=== PATIENT | female | born 1955 | race Caucasian/White ===

== ENCOUNTER 2024-01-27 13:09 | Emergency (ER) | payer MEDICARE, OTHER ==
[~2024-01-27] VITALS: Ht 172.7 cm; Wt 72.6 kg
[2024-01-27] MEDS ORDERED: NYSTRIT (13:38)
[2024-01-27] MEDS ORDERED: QUET25 PO (13:38)
[2024-01-27] MEDS ORDERED: DULCOLAX400 MG/5 M (13:39)
[2024-01-27] MEDS ORDERED: LOPE2C PO (13:39)
[2024-01-27] MEDS ORDERED: BISA10S PR (13:39)
[2024-01-27] MEDS ORDERED: Acetaminophen325 M1 PO (13:40)
[2024-01-27] MEDS ORDERED: NS 1,000 ML IV ONE (14:15)
[2024-01-27 15:14] LABS: BASOPHILS ABSOLUTE AUTO 0.04 K/mm3 (0.00-0.23); BASOPHILS PERCENT AUTO 0 % (0-2); EOSINOPHILS ABSOLUTE AUTO 0.06 K/mm3 (0.00-0.68); EOSINOPHILS PERCENT AUTO 1 % (0-6); Hematocrit 45.8 % (33.0-51.0); Hemoglobin 15.2 g/dL (11.5-16.0); IMMATURE GRAN ABSOLUTE AUTO 0.04 K/mm3 (0.00-0.10); IMMATURE GRAN PERCENT AUTO 0 % (0-1); LYMPHOCYTES ABSOLUTE AUTO 1.11 K/mm3 (0.84-5.20); LYMPHOCYTES PERCENT AUTO 11 % (21-46); MONOCYTES ABSOLUTE AUTO 0.52 K/mm3 (0.16-1.47); MONOCYTES PERCENT AUTO 5 % (4-13); Mean Corpuscular HGB 29.8 pg (26.0-34.0); Mean Corpuscular HGB Conc 33.2 g/dL (31.5-36.5); Mean Corpuscular Volume 90 fL (80-100); Mean Platelet Volume 11.2 fL (9.1-12.4); NEUTROPHILS ABSOLUTE AUTO 8.54 K/mm3 (1.96-9.15); NEUTROPHILS PERCENT AUTO 83 % (41-73); Platelet Count 243 K/mm3 (150-400); RDW Coefficient Variation 13.1 % (11.7-14.2); White Blood Cell Count 10.31 K/mm3 (4.00-11.30)
[2024-01-27 15:21] LABS: Source, Urine Straight Cath
[2024-01-27 15:30] LABS: Albumin, Blood 3.8 g/dL (3.4-5.0); Bilirubin, Total 0.7 mg/dL (0.1-1.0); Bun/Creatinine Ratio 14.2 (12.0-20.0); Calcium, Blood 9.2 mg/dL (8.5-10.1); Creatinine, Blood 1.13 mg/dL (0.40-1.00); Globulin, Blood 3.7 g/dL (2.2-4.0); Potassium, Blood 4.2 mmol/L (3.5-5.5); Total Protein, Blood 7.5 g/dL (6.4-8.2)
[2024-01-27 15:39] LABS: Appearance, Urine Clear (Clear); Bilirubin, Urine Neg (Neg); Blood, Urine 4+ (Neg); Color, Urine Yellow (P-Yellow); Glucose Qualitative, Urine 3+ (Neg); Ketones, Urine Neg (Neg); Leukocyte Esterase, Urine Neg (Neg); Nitrite, Urine Neg (Neg); Protein, Urine 1+ (Neg); Urobilinogen, Urine NORM (Normal); pH, Urine 6.5 (5.0-8.0)
[2024-01-27 15:59] LABS: Bacteria Mod /hpf; Squamous Epithelial Cells Few /hpf (Few)
[2024-01-27 16:02] LABS: Influenza A, PCR NEGATIVE (NEGATIVE); Influenza B, PCR NEGATIVE (NEGATIVE); Resp Syncytial Virus, PCR NEGATIVE (NEGATIVE); SARS-Cov-2 (COVID-19) PCR, MMC NEGATIVE (NEGATIVE)
== END 2024-01-27 17:27 | disposition home or self-care (01) ==
LOC: ER 13:09
PROVIDERS: Emergency Medicine
DX: F03.90 Unspecified dementia, unspecified severity, without behavioral disturbance, psychotic disturbance, mood disturbance, and anxiety (principal); E11.9 Type 2 diabetes mellitus without complications; E78.5 Hyperlipidemia, unspecified; I10 Essential (primary) hypertension; Z86.79 Personal history of other diseases of the circulatory system; Z79.899 Other long term (current) drug therapy; Z88.0 Allergy status to penicillin
CPT/HCPCS: 0241U; 51701; 71045; 80053; 81001; 85025; 87086; 96360; 99285-25; J7030

== ENCOUNTER 2024-04-22 14:11 | Emergency (ER) | payer MEDICARE, OTHER ==
[~2024-04-22] VITALS: Ht 162.6 cm; Wt 54.4 kg
[~2024-04-22 14:11] MED LIST: Acetaminophen325 M1 PO; BISA10S PR; DULCOLAX400 MG/5 M; LOPE2C PO; NYSTRIT; QUET25 PO
[2024-04-22] MEDS ORDERED: NS 500 ML IV SCH (14:45)
[2024-04-22 15:15] LABS: BASOPHILS ABSOLUTE AUTO 0.04 K/mm3 (0.00-0.23); BASOPHILS PERCENT AUTO 0 % (0-2); EOSINOPHILS PERCENT AUTO 2 % (0-6); Hematocrit 44.5 % (33.0-51.0); Hemoglobin 14.7 g/dL (11.5-16.0); IMMATURE GRAN ABSOLUTE AUTO 0.04 K/mm3 (0.00-0.10); IMMATURE GRAN PERCENT AUTO 0 % (0-1); LYMPHOCYTES ABSOLUTE AUTO 1.01 K/mm3 (0.84-5.20); LYMPHOCYTES PERCENT AUTO 9 % (21-46); MONOCYTES ABSOLUTE AUTO 0.54 K/mm3 (0.16-1.47); MONOCYTES PERCENT AUTO 5 % (4-13); Mean Corpuscular Volume 88 fL (80-100); Mean Platelet Volume 11.4 fL (9.1-12.4); NEUTROPHILS ABSOLUTE AUTO 8.92 K/mm3 (1.96-9.15); NEUTROPHILS PERCENT AUTO 83 % (41-73); Platelet Count 231 K/mm3 (150-400); RDW Coefficient Variation 12.7 % (11.7-14.2); RDW Standard Deviation 40.9 fL (35.1-46.3); Red Blood Cell Count 5.07 M/mm3 (3.80-5.20); White Blood Cell Count 10.75 K/mm3 (4.00-11.30)
[2024-04-22 15:44] LABS: Free Thyroxine 1.6 ng/dL (0.70-1.60); Magnesium, Blood 2.2 mg/dL (1.6-2.4)
[2024-04-22 15:52] LABS: Calcium, Blood 9.9 mg/dL (8.5-10.1); Creatinine, Blood 1.25 mg/dL (0.40-1.00); Potassium, Blood 4.9 mmol/L (3.5-5.5)
[2024-04-22 16:03] LABS: Thyroid Stimulating Hormone 7.74 uIU/mL (0.360-4.800)
[2024-04-22 16:45] LABS: Source, Urine Clean Catch
[2024-04-22 16:59] LABS: Appearance, Urine Hazy (Clear); Bilirubin, Urine Neg (Neg); Blood, Urine 1+ (Neg); Color, Urine Yellow (P-Yellow); Glucose Qualitative, Urine 4+ (Neg); Ketones, Urine Neg (Neg); Leukocyte Esterase, Urine Neg (Neg); Nitrite, Urine Neg (Neg); Protein, Urine 1+ (Neg); Urobilinogen, Urine NORM (Normal)
[2024-04-22 17:00] LABS: Specific Gravity, Urine 1.015 (1.003-1.022)
[2024-04-22 17:15] LABS: Bacteria Mod /hpf; Red Blood Cells, Urine 0-2 /hpf (0-2); Squamous Epithelial Cells Rare /hpf (Few)
[2024-04-22 17:16] LABS: Amorphous Mod (0-Heavy); Mucus Light (0-Heavy)
== END 2024-04-22 20:13 | disposition home or self-care (01) ==
LOC: ER 14:11
PROVIDERS: Emergency Medicine
DX: E86.0 Dehydration (principal); I95.9 Hypotension, unspecified; G20.A1 Parkinson's disease without dyskinesia, without mention of fluctuations; F02.80 Dementia in other diseases classified elsewhere, unspecified severity, without behavioral disturbance, psychotic disturbance, mood disturbance, and anxiety; I10 Essential (primary) hypertension; E11.9 Type 2 diabetes mellitus without complications; E78.5 Hyperlipidemia, unspecified; Z88.0 Allergy status to penicillin; Z79.899 Other long term (current) drug therapy
CPT/HCPCS: 51798; 70450; 71045; 80048; 81001; 82607; 83735; 84439; 84443; 85025; 93005; 93010; 99285-25; J7030

== ENCOUNTER 2024-04-23 07:50 | Emergency (ER) | payer MEDICARE, OTHER ==
[~2024-04-23] VITALS: Ht 170.2 cm; Wt 56.2 kg
[~2024-04-23 07:50] MED LIST changes: -DULCOLAX400 MG/5 M; +DULCOLAX400 MG/5 M PO
== END 2024-04-23 10:12 | disposition home or self-care (01) ==
LOC: ER 07:50
DX: S09.90XA Unspecified injury of head, initial encounter (principal); M25.551 Pain in right hip; W06.XXXA Fall from bed, initial encounter; I10 Essential (primary) hypertension; E11.9 Type 2 diabetes mellitus without complications; E78.5 Hyperlipidemia, unspecified; G20.A1 Parkinson's disease without dyskinesia, without mention of fluctuations; F02.80 Dementia in other diseases classified elsewhere, unspecified severity, without behavioral disturbance, psychotic disturbance, mood disturbance, and anxiety; Z88.0 Allergy status to penicillin; Z79.899 Other long term (current) drug therapy
CPT/HCPCS: 70450; 72125; 73502; 99284-25

== ENCOUNTER 2024-05-07 09:32 | Emergency (ER) | payer MEDICARE, OTHER ==
[~2024-05-07] VITALS: Ht 165.1 cm; Wt 56.7 kg
[~2024-05-07 09:32] MED LIST changes: +DULCOLAX400 MG/5 M; -DULCOLAX400 MG/5 M PO
[2024-05-07 10:17] LABS: Source, Urine Straight Cath
[2024-05-07 10:19] LABS: Bilirubin, Urine Neg (Neg); Blood, Urine Neg (Neg); Glucose Qualitative, Urine 4+ (Neg); Ketones, Urine Neg (Neg); Leukocyte Esterase, Urine Neg (Neg); Nitrite, Urine Neg (Neg); Protein, Urine 1+ (Neg); Urobilinogen, Urine NORM (Normal)
[2024-05-07 10:30] LABS: Appearance, Urine Clear (Clear); Color, Urine Yellow (P-Yellow)
== END 2024-05-07 13:53 | disposition home or self-care (01) ==
LOC: ER 09:32
PROVIDERS: Student in an Organized Health Care Education/Training Program
DX: S09.90XA Unspecified injury of head, initial encounter (principal); I10 Essential (primary) hypertension; E11.9 Type 2 diabetes mellitus without complications; E78.5 Hyperlipidemia, unspecified; G20.A1 Parkinson's disease without dyskinesia, without mention of fluctuations; F02.80 Dementia in other diseases classified elsewhere, unspecified severity, without behavioral disturbance, psychotic disturbance, mood disturbance, and anxiety; Z91.81 History of falling; Z88.0 Allergy status to penicillin; Z79.899 Other long term (current) drug therapy; W05.0XXA Fall from non-moving wheelchair, initial encounter
CPT/HCPCS: 99283

== ENCOUNTER 2024-05-15 09:22 | Inpatient (IN) | payer MEDICARE, OTHER ==
[~2024-05-15] VITALS: Ht 175.3 cm; Wt 61.9 kg
[~2024-05-15 09:22] MED LIST changes: -DULCOLAX400 MG/5 M; +DULCOLAX400 MG/5 M PO
[2024-05-15 10:16] LABS: Source, Urine Foley catheter
[2024-05-15 10:22] LABS: BASOPHILS ABSOLUTE AUTO 0.04 K/mm3 (0.00-0.23); BASOPHILS PERCENT AUTO 0 % (0-2); EOSINOPHILS ABSOLUTE AUTO 0.01 K/mm3 (0.00-0.68); EOSINOPHILS PERCENT AUTO 0 % (0-6); Hematocrit 45.8 % (33.0-51.0); Hemoglobin 14.5 g/dL (11.5-16.0); IMMATURE GRAN ABSOLUTE AUTO 0.04 K/mm3 (0.00-0.10); IMMATURE GRAN PERCENT AUTO 0 % (0-1); LYMPHOCYTES ABSOLUTE AUTO 1.32 K/mm3 (0.84-5.20); LYMPHOCYTES PERCENT AUTO 10 % (21-46); MONOCYTES ABSOLUTE AUTO 0.95 K/mm3 (0.16-1.47); MONOCYTES PERCENT AUTO 7 % (4-13); Mean Corpuscular HGB 28.7 pg (26.0-34.0); Mean Corpuscular HGB Conc 31.7 g/dL (31.5-36.5); Mean Corpuscular Volume 91 fL (80-100); Mean Platelet Volume 12.4 fL (9.1-12.4); NEUTROPHILS PERCENT AUTO 83 % (41-73); Platelet Count 135 K/mm3 (150-400); RDW Coefficient Variation 13.6 % (11.7-14.2); RDW Standard Deviation 45.1 fL (35.1-46.3); Red Blood Cell Count 5.06 M/mm3 (3.80-5.20); White Blood Cell Count 13.76 K/mm3 (4.00-11.30)
[2024-05-15 10:24] LABS: Appearance, Urine Hazy (Clear); Bilirubin, Urine Neg (Neg); Blood, Urine 5+ (Neg); Color, Urine Yellow (P-Yellow); Glucose Qualitative, Urine 4+ (Neg); Ketones, Urine 1+ (Neg); Leukocyte Esterase, Urine 1+ (Neg); Nitrite, Urine Neg (Neg); Protein, Urine 2+ (Neg); Specific Gravity, Urine 1.025 (1.003-1.022); Urobilinogen, Urine NORM (Normal)
[2024-05-15 10:37] LABS: Bacteria Many /hpf
[2024-05-15 10:38] LABS: Red Blood Cells, Urine 25-50 /hpf (0-2)
[2024-05-15 10:39] LABS: Amorphous Light (0-Heavy)
[2024-05-15 10:41] LABS: Yeast/Fungi Urine Few /hpf
[2024-05-15 10:59] LABS: Squamous Epithelial Cells Mod /hpf (Few)
[2024-05-15 11:11] LABS: Albumin, Blood 2.8 g/dL (3.4-5.0); Albumin/Globulin Ratio 0.7 (0.8-1.8); Bilirubin, Total 0.9 mg/dL (0.1-1.0); Calcium, Blood 9.5 mg/dL (8.5-10.1); Creatinine, Blood 1.87 mg/dL (0.40-1.00); Potassium, Blood 4.5 mmol/L (3.5-5.5); Total Protein, Blood 6.8 g/dL (6.4-8.2)
[2024-05-15] MEDS ORDERED: CefTRIAXone Sodium 1,000 MG in NS 100 ML IV ONE (11:20)
[2024-05-15] MEDS ORDERED: NS 1,000 ML IV SCH (11:20)
[2024-05-15] MEDS ORDERED: Acetaminophen 650 MG Supp PR PRN (12:40)
[2024-05-15] MEDS ORDERED: FLU VACC TS2024-25(6MOS UP)/PF 45 MCG/0.5 ML SYRINGE IM ONE (12:40)
[2024-05-15] MEDS ORDERED: Ondansetron HCl 2 MG / ML 2ML Vial IV PRN (12:45)
[2024-05-15] MEDS ORDERED: Acetaminophen 325 MG TABLET PO PRN (12:45)
[2024-05-15] MEDS ORDERED: Lactated Ringer's 1,000 ML IV SCH ×2 (12:45→13:00)
[2024-05-15] MEDS ORDERED: Cefepime HCl 1,000 MG in NS 100 ML IV SCH (13:00)
[2024-05-15] MEDS ORDERED: OLANZAPINE1024 PO (15:10)
[2024-05-15] MEDS ORDERED: NYSTATIN15 GM TOP (15:16)
[2024-05-15] MEDS ORDERED: TRIPLE PASTE57 GM TOP (15:23)
[2024-05-15] MEDS ORDERED: Zinc Oxide Ointment 30 GM TOP PRN (17:30)
[2024-05-15] MEDS ORDERED: Nystatin 100,000 Unit/GM CREAM 15 GM TOP PRN (17:30)
[2024-05-15] MEDS ORDERED: Insulin Human Lispro 100 Units/ML 3ML Syringe SC SCH (18:00)
[2024-05-15 19:26] VITALS: BP 159/88
[2024-05-15] MEDS ORDERED: METF500 PO (19:28)
[2024-05-15] MEDS ORDERED: Sennosides 8.6 MG Tab PO SCH (21:00)
[2024-05-15] MEDS ORDERED: Docusate Sodium 100 MG Cap PO SCH (21:00)
[2024-05-16 02:16] VITALS: BP 134/85
[2024-05-16 05:44] LABS: BASOPHILS ABSOLUTE AUTO 0.05 K/mm3 (0.00-0.23); BASOPHILS PERCENT AUTO 0 % (0-2); EOSINOPHILS ABSOLUTE AUTO 0.08 K/mm3 (0.00-0.68); EOSINOPHILS PERCENT AUTO 1 % (0-6); Hematocrit 41.9 % (33.0-51.0); Hemoglobin 13.2 g/dL (11.5-16.0); IMMATURE GRAN ABSOLUTE AUTO 0.05 K/mm3 (0.00-0.10); IMMATURE GRAN PERCENT AUTO 0 % (0-1); LYMPHOCYTES ABSOLUTE AUTO 1.48 K/mm3 (0.84-5.20); LYMPHOCYTES PERCENT AUTO 9 % (21-46); MONOCYTES ABSOLUTE AUTO 0.94 K/mm3 (0.16-1.47); MONOCYTES PERCENT AUTO 6 % (4-13); Mean Corpuscular HGB 28.9 pg (26.0-34.0); Mean Corpuscular HGB Conc 31.5 g/dL (31.5-36.5); Mean Corpuscular Volume 92 fL (80-100); Mean Platelet Volume 12.5 fL (9.1-12.4); NEUTROPHILS ABSOLUTE AUTO 13.86 K/mm3 (1.96-9.15); NEUTROPHILS PERCENT AUTO 84 % (41-73); Platelet Count 108 K/mm3 (150-400); RDW Coefficient Variation 13.6 % (11.7-14.2); RDW Standard Deviation 46.3 fL (35.1-46.3); Red Blood Cell Count 4.56 M/mm3 (3.80-5.20); White Blood Cell Count 16.46 K/mm3 (4.00-11.30)
[2024-05-16 06:10] LABS: Albumin, Blood 2.3 g/dL (3.4-5.0); Albumin/Globulin Ratio 0.7 (0.8-1.8); Bilirubin, Total 0.6 mg/dL (0.1-1.0); Bun/Creatinine Ratio 40.5 (12.0-20.0); Calcium, Blood 8.9 mg/dL (8.5-10.1); Creatinine, Blood 1.21 mg/dL (0.40-1.00); Globulin, Blood 3.5 g/dL (2.2-4.0); Potassium, Blood 4.2 mmol/L (3.5-5.5); Total Protein, Blood 5.8 g/dL (6.4-8.2)
[2024-05-16] MEDS ORDERED: FentaNYL Citrate 50 MCG/ML 2 ML Injection IV PRN (06:30)
[2024-05-16] MEDS ORDERED: Dextrose 5% 1,000 ML IV SCH ×3 (06:35→12:50)
--- NOTE | 2024-05-16 07:25 | NUR ---
Shift Summary Pt admitted to this unit from ED for unresponsiveness and sepsis. Pt was minimally responsive t/o the shift, never fully waking up and only providing a rare one mumbled word. She rcvd IV fluids t/o the night and was Q6 blood sugar, she was given fast acting insulin at every check per Q6 sliding scale with BG values around 260. This AM she woke up with a grimace of pain on her face, I called the hospitalist who ordered 25 mcg fentanyl Q4 PRN, the first dose seemed to help. Valdez cathereter in place, patent. Pt is AOx0, unresponsive.
[2024-05-16 07:36] VITALS: BP 135/79
[2024-05-16] MEDS ORDERED: Vancomycin HCL 1,500 MG in NS 250 ML IV ONE (07:40)
[2024-05-16] MEDS ORDERED: Heparin Sodium 5000 Units/ML 1ML MDV SC SCH (09:00)
[2024-05-16 11:15] LABS: Bun/Creatinine Ratio 40.7 (12.0-20.0); Calcium, Blood 8.3 mg/dL (8.5-10.1); Creatinine, Blood 1.08 mg/dL (0.40-1.00); Potassium, Blood 4.3 mmol/L (3.5-5.5)
[2024-05-16] MEDS ORDERED: Enoxaparin 40 MG/0.4 ML SYR SC SCH (13:00)
[2024-05-16 15:33] LABS: Bun/Creatinine Ratio 36.9 (12.0-20.0); Calcium, Blood 7.6 mg/dL (8.5-10.1); Creatinine, Blood 1.03 mg/dL (0.40-1.00); Potassium, Blood 3.2 mmol/L (3.5-5.5)
[2024-05-16] MEDS ORDERED: Insulin Human Lispro 100 Units/ML 3ML Syringe SC ONE ×2 (15:40→16:00)
[2024-05-16 16:15] VITALS: BP 145/90
[2024-05-16] MEDS ORDERED: NS 250 ML IV PRN (16:15)
[2024-05-16] MEDS ORDERED: Insulin Human Lispro 100 Units/ML 3ML Syringe SC SCH (18:00)
--- NOTE | 2024-05-16 18:45 | NUR ---
PT DROWSY AND ORIENTED TO SELF AND SISTER ONLY. VSS, RA. CRITICAL GLUCOSE THIS AFTERNOON OF 912, NOTIFIED, INSULIN GIVEN. PT BED BOUND, WAS NOT ALERT ENOUGH FOR SPEECH TODAY AND REMAINS NPO. IV POTASSIUM INFUSING. PHOTOS OF WOUNDS PLACED IN CHART. PT GRIMACED IN PAIN, PRN FENTANYL, AND TYLENOL SUPOSITORY GIVEN. URENA REMOVED PER ORDER, NO URINE YET BLADDER SCAN SHOWED 157 ML. PT REPOSITIONED Q2 HOURS. PT BECAME MORE RESPONSIVE THE SHIFT PROGRESSED.
[2024-05-16 19:30] LABS: Bun/Creatinine Ratio 42.3 (12.0-20.0); Calcium, Blood 8.8 mg/dL (8.5-10.1); Creatinine, Blood 0.99 mg/dL (0.40-1.00); Potassium, Blood 3.9 mmol/L (3.5-5.5)
[2024-05-16 20:47] VITALS: BP 127/89
[2024-05-17 01:07] LABS: Source, Urine Straight Cath
[2024-05-17 01:35] LABS: Bilirubin, Urine Neg (Neg); Blood, Urine 3+ (Neg); Glucose Qualitative, Urine 4+ (Neg); Ketones, Urine 1+ (Neg); Leukocyte Esterase, Urine Neg (Neg); Nitrite, Urine Neg (Neg); Protein, Urine 1+ (Neg); Urobilinogen, Urine NORM (Normal)
[2024-05-17 01:56] LABS: Appearance, Urine Cloudy (Clear); Color, Urine Yellow (P-Yellow); Red Blood Cells, Urine 0-2 /hpf (0-2); Squamous Epithelial Cells Rare /hpf (Few); White Blood Cells, Urine Not Seen /hpf (0-5)
[2024-05-17 01:57] LABS: Bacteria Rare /hpf; Uric Acid Crystals Mod /hpf; Yeast/Fungi Urine Many /hpf
[2024-05-17 04:32] VITALS: BP 128/84
--- NOTE | 2024-05-17 05:06 | NUR ---
Pt obtunnded, did respond to physical touch. Pt cryed out in pain if attempting to straighten legs. Pt with multiple blisters on RLE, and LUE. Pt with no UOP d/t NPO status, and on no IVF. VS WNL, CBG 159 at 2100, and covered with 2 units of insulin. ulcer on coccyx covered with mepilex. Pt turned every 2-3 hrs. Awaiting Pallative consult, remains on IVABX.
[2024-05-17 06:03] LABS: BASOPHILS ABSOLUTE AUTO 0.03 K/mm3 (0.00-0.23); BASOPHILS PERCENT AUTO 0 % (0-2); EOSINOPHILS ABSOLUTE AUTO 0.12 K/mm3 (0.00-0.68); EOSINOPHILS PERCENT AUTO 1 % (0-6); Hematocrit 43.2 % (33.0-51.0); Hemoglobin 13.3 g/dL (11.5-16.0); IMMATURE GRAN ABSOLUTE AUTO 0.05 K/mm3 (0.00-0.10); IMMATURE GRAN PERCENT AUTO 0 % (0-1); LYMPHOCYTES ABSOLUTE AUTO 1.28 K/mm3 (0.84-5.20); LYMPHOCYTES PERCENT AUTO 10 % (21-46); MONOCYTES ABSOLUTE AUTO 0.79 K/mm3 (0.16-1.47); MONOCYTES PERCENT AUTO 6 % (4-13); Mean Corpuscular HGB 28.9 pg (26.0-34.0); Mean Corpuscular HGB Conc 30.8 g/dL (31.5-36.5); Mean Corpuscular Volume 94 fL (80-100); Mean Platelet Volume 12.7 fL (9.1-12.4); NEUTROPHILS ABSOLUTE AUTO 11.02 K/mm3 (1.96-9.15); NEUTROPHILS PERCENT AUTO 83 % (41-73); Platelet Count 125 K/mm3 (150-400); RDW Coefficient Variation 13.4 % (11.7-14.2); RDW Standard Deviation 45.9 fL (35.1-46.3); White Blood Cell Count 13.29 K/mm3 (4.00-11.30)
[2024-05-17 06:33] LABS: Albumin, Blood 2.1 g/dL (3.4-5.0); Albumin/Globulin Ratio 0.6 (0.8-1.8); Bilirubin, Total 0.7 mg/dL (0.1-1.0); Bun/Creatinine Ratio 35.9 (12.0-20.0); Calcium, Blood 9.1 mg/dL (8.5-10.1); Creatinine, Blood 1.03 mg/dL (0.40-1.00); Globulin, Blood 3.8 g/dL (2.2-4.0); Potassium, Blood 4.7 mmol/L (3.5-5.5); Total Protein, Blood 5.9 g/dL (6.4-8.2)
[2024-05-17] MEDS ORDERED: Sodium Chloride 0.45% 1,000 ML IV SCH (07:20)
[2024-05-17 07:28] VITALS: BP 149/86
[2024-05-17 07:34] LABS: CHOL/HDL RATIO 4.3; Cholesterol 154 mg/dL (50-200); HDL Cholesterol 36 mg/dL (>39); LDL/HDL RATIO 2.2; Low Density Lipoprotein Chol 79 mg/dL (0-110); Magnesium, Blood 2.3 mg/dL (1.6-2.4); Phosphorus, Blood 2.3 mg/dL (2.5-4.9); Triglycerides 193 mg/dL (30-160); Very Low Density Lipoprot Chol 38 mg/dL (6-32)
[2024-05-17] MEDS ORDERED: D5W-1/4NS 1,000 ML IV SCH (08:30)
[2024-05-17] MEDS ORDERED: Vancomycin HCL 1,250 MG in NS 250 ML IV SCH (09:00)
[2024-05-17 11:16] LABS: Calcium, Blood 8.8 mg/dL (8.5-10.1); Creatinine, Blood 1.03 mg/dL (0.40-1.00); Potassium, Blood 4.3 mmol/L (3.5-5.5)
[2024-05-17 13:17] LABS: Bun/Creatinine Ratio 33.7 (12.0-20.0); Calcium, Blood 8.6 mg/dL (8.5-10.1); Creatinine, Blood 1.04 mg/dL (0.40-1.00); Potassium, Blood 4.5 mmol/L (3.5-5.5)
[2024-05-17 15:21] VITALS: BP 147/93
[2024-05-17 16:16] LABS: Calcium, Blood 8.4 mg/dL (8.5-10.1)
[2024-05-17] MEDS ORDERED: Insulin Regular 100 UNIT/ML 10ML Vial SC SCH (18:00)
[2024-05-17] MEDS ORDERED: Insulin Human Lispro 100 Units/ML 3ML Syringe SC SCH (18:00)
--- NOTE | 2024-05-17 18:55 | NUR ---
SHIFT SUMMARY PATIENT NOW RESPONDING TO VERBAL STIMULI, ABLE TO ANSWER QUESTIONS INTERMITTENTLY WITH 1-2 WORD ANSWERS. PUREWICK IN PLACE. PATIENT PROVIDED WITH BEDBATH AND LINEN CHANGE THIS SHIFT AND DENTAL HYGIENEIST CALLED TO PROVIDE THOROUGH ORAL CARE. WOUND CARE PROVIDED TO PRESSURE INJURY TO LEFT BUTTOCK. MD NOTIFIED OF MULTIPLE LARGE FLUID FILLED BLISTERS, PRIMARILY BILATERAL FEET BUT ALSO PRESENT ON LEFT WRIST. ANTIBIOTICS AND FLUIDS ADMINISTERED PER JUL. REMAINS NPO UNTIL SPEECH THERAPY ASSESSES PATIENT AND MENTATION IMPROVES. SPOKE WITH PATIENT S SISTER THIS AM, TIEN, WHO GIVES PERMISSION TO RELEASE INFORMATION TO PATIENT S DAUGHTERS, INCLUDING YOLANDA . ALSO SPOKE WITH SANDI ALVARADO TO GIVE UPDATE ON PATIENT STATUS. SISTER, TIEN, STATES AT BASELINE PATIENT YELL A LOT CAN HOLD CONVERSATION BUT HAS BEHAVIORAL DISTURBANCES AND HAS ATTEMPTED TO BREAK HER SISTER S ARM. NO OTHER CONCERNS AT THIS TIME.
[2024-05-17 19:39] VITALS: BP 153/83
[2024-05-17] MEDS ORDERED: Insulin Glargine-Yfgn 100 Unit/mL 3 ML SYR SC SCH (21:00)
[2024-05-17 21:35] LABS: Bun/Creatinine Ratio 31.7 (12.0-20.0); Calcium, Blood 8.7 mg/dL (8.5-10.1); Creatinine, Blood 0.92 mg/dL (0.40-1.00); Potassium, Blood 3.8 mmol/L (3.5-5.5)
[2024-05-18 00:59] LABS: Bun/Creatinine Ratio 29.2 (12.0-20.0); Calcium, Blood 8.5 mg/dL (8.5-10.1); Creatinine, Blood 0.93 mg/dL (0.40-1.00); Potassium, Blood 3.7 mmol/L (3.5-5.5)
--- NOTE | 2024-05-18 03:07 | NUR ---
SHIFT SUMMARY PT RESPONDS TO TOUCH AND VERBAL STIMULI, AROUSABLE. PT TEARING/CRYING QUIETLY WHEN REPOSITIONED Q2HRS IN BED. MEDICATED ONCE WITH PRN IV FENTANYL PRIOR TO REPOSITIONING. HS B, GLARGINE ADMINISTERED ORDERED. Q6HR BG @MIDNIGHT: 294, HUMULIN ADMINISTERED ORDERED. D51/4NS INFUSING @150ML/HR ORDERED. PT CONTINUES ON NPO STATUS UNTIL SPEECH EVALUATES. PUREWICK>400MLS JELENA COLOR URINE. ATTENDS IN PLACE. MEPILEX ON LEFT BUTTOCK C/D/I. RA, SAT'S> 96%. NO ACUTE EVENTS DURING THIS SHIFT. BED AT THE LOWEST POSITION, CALL LIGHT W/I REACH. FREQUENT CHECKS BY THE BEDSIDE.
[2024-05-18 05:28] VITALS: BP 88/61
[2024-05-18 05:30] VITALS: BP 102/53
[2024-05-18 06:16] LABS: BASOPHILS ABSOLUTE AUTO 0.03 K/mm3 (0.00-0.23); BASOPHILS PERCENT AUTO 0 % (0-2); EOSINOPHILS ABSOLUTE AUTO 0.24 K/mm3 (0.00-0.68); EOSINOPHILS PERCENT AUTO 3 % (0-6); Hemoglobin 11.5 g/dL (11.5-16.0); IMMATURE GRAN ABSOLUTE AUTO 0.03 K/mm3 (0.00-0.10); IMMATURE GRAN PERCENT AUTO 0 % (0-1); LYMPHOCYTES ABSOLUTE AUTO 1.05 K/mm3 (0.84-5.20); LYMPHOCYTES PERCENT AUTO 11 % (21-46); MONOCYTES PERCENT AUTO 7 % (4-13); Mean Corpuscular HGB 28.8 pg (26.0-34.0); Mean Corpuscular HGB Conc 31.9 g/dL (31.5-36.5); Mean Corpuscular Volume 90 fL (80-100); Mean Platelet Volume 12.9 fL (9.1-12.4); NEUTROPHILS ABSOLUTE AUTO 7.44 K/mm3 (1.96-9.15); NEUTROPHILS PERCENT AUTO 78 % (41-73); Platelet Count 114 K/mm3 (150-400); RDW Coefficient Variation 13.2 % (11.7-14.2); RDW Standard Deviation 43.7 fL (35.1-46.3); Red Blood Cell Count 3.99 M/mm3 (3.80-5.20); White Blood Cell Count 9.49 K/mm3 (4.00-11.30)
[2024-05-18 07:04] LABS: Bun/Creatinine Ratio 29.4 (12.0-20.0); Calcium, Blood 8.3 mg/dL (8.5-10.1); Creatinine, Blood 0.88 mg/dL (0.40-1.00); Potassium, Blood 3.5 mmol/L (3.5-5.5)
[2024-05-18] MEDS ORDERED: Potassium Phosphate Dibasic 20 MM in Dextrose 5% 500 ML IV STA (07:14)
[2024-05-18 07:51] VITALS: BP 155/90
[2024-05-18 10:45] LABS: Bun/Creatinine Ratio 26.2 (12.0-20.0); Calcium, Blood 8.4 mg/dL (8.5-10.1); Creatinine, Blood 0.92 mg/dL (0.40-1.00); Potassium, Blood 3.5 mmol/L (3.5-5.5)
[2024-05-18] MEDS ORDERED: LORazepam 1 MG Tab PO PRN (12:30)
[2024-05-18] MEDS ORDERED: Scopolamine Hydrobromide Patch TOP PRN (12:30)
[2024-05-18] MEDS ORDERED: Morphine Sulfate 20 MG/1ML 1 ML Oral Syringe SL PRN (12:30)
[2024-05-18] MEDS ORDERED: Atropine Sulfate 1% Opth Soln 2ML BTL SL PRN (12:30)
[2024-05-18] MEDS ORDERED: Acetaminophen 650 MG Supp PR PRN (13:55)
[2024-05-18] MEDS ORDERED: Ondansetron HCl 2 MG / ML 2ML Vial IV PRN (13:55)
--- NOTE | 2024-05-18 17:58 | NUR ---
GOALS OF CARE: PT'S EYES OPEN, BILAT PUPILS SLUGGISH AND NOT TRACKING. NON-VERBAL, SHE GROANED 1 TIME FOR LESS THAN 3 SECONDS WHILE CARES WERE BEING COMPLETED. NO OTHER S/SX OF DISTRESS NOTED. ASSISTED PRIMARY RN AND STOPPER SETTER WITH CARES AND WOUND PICTURES. ANASARCA NOTED. PPP X4. BILAT PEDAL PULSES WEAK/THREADY. LEFT FOOT DUSKY AND COOL TO THE TOUCH. REVIEWED CURRENT MEDICAL STATUS VIA PHONE WITH BOTH PT'S SISTER, TIEN AND PT'S DTR, YOLANDA. TIEN HAS HISTORICALLY BEEN THE DECISION MAKER FOR PT. YOLANDA CONFIRMED, TIEN IS TO MAKE MEDICAL DECISIONS. BOTH SISTER AND DTR ARE IN AGREEMENT WITH DNR/[employer]. THEIR GOAL IS FOR PT TO RETURN TO [facility] WITH HOSPICE SERVICES. FAMILY DOES NOT HAVE A HOSPICE AGENCY PREFERENCE. POLST FORM FILLED OUT WITH TIEN BY PHONE.
--- NOTE | 2024-05-18 18:45 | NUR ---
SHIFT SUMMARY: PROMPTLY GOT PALLATIVE CARE INVOLVED THIS MORNING AFTER BEDSIDE REPORT AND SEEING STATE OF PATIENT AND DOING CHART REVIEW. PALLATIVE QUICKLY EVALUATED PATIENT AND CONCERNS ADDRESSED TO MD. PATIENT WAS PLACED ON COMFORTABLE THIS AFTERNOON. THIS EVENING WHEN 2 DOSE OF ROXANOL WAS BEING GIVEN PATIENT EXPRESSED HER HEAD HURTING AND STARTING WINCING. PATIENT EXCEPTING ON PAIN MEDICATION AND THANKED THE RN. PATIENT RESTING AT THIS TIME, BREATHS SWALLOW, DRY.
[2024-05-18] MEDS ORDERED: Insulin Glargine-Yfgn 100 Unit/mL 3 ML SYR SC SCH (21:00)
--- NOTE | 2024-05-19 02:28 | NUR ---
NEW T-ORDER FROM ON-CALL HOSPITALIST : CHANGE PO ATIVAN 0.5-1.0MG TO IV ATIVAN 0.5-1.0 QHRS PRN. ENTERED TO [employer], SEE EMAR.
[2024-05-19] MEDS ORDERED: LORazepam 2 MG/ML 1ML Injection IV PRN (02:30)
--- NOTE | 2024-05-19 03:21 | NUR ---
SHIFT SUMMARY PT IS ON COMFORT CARE MEASURES. PT RESPONDS TO VERBAL STIMULI. A/O TO SELF AND PERSON. REPOSITIONED, ATTENDS IN PLACE. VOIDED X1. SOME CRYING OUT LOUD AT EARLY AM HRS. RESOLVED WITH PAIN MEDICATION. BED AT THE LOWEST POSITION, CALL LIGHT W/I REACH. FREQUENT CHECKS BY THE BEDSIDE.
[2024-05-19] MEDS ORDERED: Morphine Sulfate 20 MG/1ML 1 ML Oral Syringe SL PRN (10:20)
[2024-05-19] MEDS ORDERED: ATROPINE SULFATE2 M1 SL (11:31)
[2024-05-19] MEDS ORDERED: TRANSDERM-SCOP1 EA13 TD (11:32)
[2024-05-19] MEDS ORDERED: MORP20L SL (11:32)
--- NOTE | 2024-05-19 12:26 | NUR ---
DISCHARGE NOTE: PATIENT WAS BATHED AND PREPARED FOR MEDICAL TRANSPORT SCHEDULED FOR 1200. MEDICAL TRANSPORT ARRIVED, PATIENT HAD VISTORS IN ROOM; I BELIEVE A FRIEND OF THE PATIENT'S SISTER. PATIENT'S BELONGINGS WERE COLLECTED, CLOTHES WERE THROWN AWAY DUE TO BEING SOILED. PATIENT ALERT AT TIME OF TRANSPORT; MOANING/GROANING. PAPERWORK PROVIDED TO MEDICAL TRANSPORTED, NO SIGNS OR SYMPTOMS OF DISTRESS WITH PATIENT DURING DISCHARGE; VISTORS FOLLOWED PATIENT OUT.
--- NOTE | 2024-05-19 16:47 | NUR ---
ASSESSED PATIENT. SHE AWOKE UPON TOUCH. HER EXTREMITIES ARE WARM TO THE TOUCH. SKIN TONE IS EVEN. HER RESPIRATIONS ARE EVEN AND UNLABORED.
== END 2024-05-19 12:22 | DRG 640 ==
LOC: ER 09:22 → MEDS 09:23 → ERHOLD 09:23 → MEDS 17:07 → ENPENDDIS 05-19 11:22 → MEDS 05-19 12:22
PROVIDERS: Emergency Medicine; Internal Medicine; ADMIT Family Medicine
DX: E87.0 Hyperosmolality and hypernatremia (principal); G92.8 Other toxic encephalopathy; N17.9 Acute kidney failure, unspecified; R65.10 Systemic inflammatory response syndrome (SIRS) of non-infectious origin without acute organ dysfunction; F02.C11 Dementia in other diseases classified elsewhere, severe, with agitation; F01.C11 Vascular dementia, severe, with agitation; G20.A1 Parkinson's disease without dyskinesia, without mention of fluctuations; Z51.5 Encounter for palliative care; Z66 Do not resuscitate; I10 Essential (primary) hypertension; L89.152 Pressure ulcer of sacral region, stage 2; E86.0 Dehydration; E11.65 Type 2 diabetes mellitus with hyperglycemia; I49.3 Ventricular premature depolarization; D69.6 Thrombocytopenia, unspecified; Z91.51 Personal history of suicidal behavior; Z88.0 Allergy status to penicillin
CPT/HCPCS: 36415; 51702; 70450; 71045; 74176; 80048; 80053; 80061; 81001; 82947; 83605; 83735; 83935; 84100; 84145; 85025; 87086; 93005; 93010; 96365-59; 99285-25; A9270; J0692; J0696; J1644; J1650; J1815; J3010; J3370; J3480; J7030; J7042; J7050; J7060; J7070; J7120